=== PATIENT | male | born 2000 | race African-American/Black ===

== ENCOUNTER 2019-05-10 17:40 | Observation (INO) ==
[2019-05-10] MEDS ORDERED: LACTATED RINGERS 1,000 ML IV STA (17:54)
[2019-05-10] MEDS ORDERED: ONDANSETRON 4 MG/2 ML VIAL IV STA (17:54)
[2019-05-10] MEDS ORDERED: fentaNYL 100 MCG/2 ML VIAL IV STA (17:54)
[2019-05-10 18:26] LABS: Basophils % 0.2 % (0.0-0.8); Eosinophils % 0.2 % (0.00-10.9); Hemoglobin 13.5 GM/DL (14.0-18.0); Immature Granulocytes % 0.2 %; Immature Granulocytes Absolute 0.01 #; Lymphocytes # 2.5 10*3/uL (1.4-4.0); Lymphocytes % 54.3 % (21.2-54.2); Mean Corpuscular HGB Conc 32.9 GM/DL (32-36); Mean Corpuscular Volume 88.9 FL (87-102); Mean Platelet Volume 11.7 FL (9.6-12.0); Neutrophils % 36.1 % (38.7-73.9); Platelet Count 159 T/CUMM (130-400); Red Blood Count 4.61 MC/CUMM (3.8-5.5); Red Cell Distribution Width 12.7 % (9.3-17.3); White Blood Count 4.6 T/CUMM (4-12)
[2019-05-10 18:32] LABS: INR 1.1; PT Patient Result 11.4 SECS (9.6-12.2); Partial Thromboplastin Time 22.6 SECS (20.8-36.0)
[2019-05-10 18:38] LABS: Alanine Aminotransferase 18 U/L (16-61); Albumin 3.7 G/DL (3.4-5.0); Alkaline Phosphatase 77 U/L (45-117); Amylase 46 U/L (25-115); Aspartate Amino Transferase 22 U/L (0-37); Blood Urea Nitrogen 14 MG/DL (7-18); Estimated Glom Filtration Rate 98 ML/MIN; Glucose 114 MG/DL (74-106); Osmolality,Calculated 280.4 MOS/KG (273-304); Total Protein 7.4 G/DL (6.4-8.3)
[2019-05-10] MEDS ORDERED: ceFAZolin 1,000 MG in SYRINGE 1 EACH IV ONE (19:01)
[2019-05-10] MEDS ORDERED: DIPH/TET/ACEL PERT BOOSTER VACCINE 0.5 ML VIAL IM ONE ×4 (19:03→19:30)
[2019-05-10 19:05] LABS: Band Neutrophils 1 % (0-10); Lymphocytes 53 % (20-55); Platelet Estimate Normal; Segmented Neutrophils 41 % (50-85); Total Cells Counted 100
[2019-05-10 19:28] LABS: Apearance,Urine CLEAR (Clear); Bilirubin,Urine Negative (Negative); Blood, Urine Negative (Negative); Glucose,Urine (UA) Negative (Negative); Ketones,Urine Negative (Negative); Mucus,Urine Few /LPF (Occasional); Nitrite,Urine Negative (Negative); Protein,Urine Negative; RBC,Urine 1 /HPF (0-4); Squamous Epithelial Cell,Urine Occasional /HPF (0-10); Urine Color Yellow (Yellow); Urine Specific Gravity 1.046 (1.001-1.035); WBC,Urine 3 /HPF (0-6)
[2019-05-10 19:35] LABS: Barbiturates Screen,Urine Negative (Negative); Benzodiazepines Screen,Urine Negative (Negative); Cannabinoid Screen,Urine Negative (Negative); Opiate Screen,Urine Negative (Negative); Phencyclidine Screen,Urine Negative (Negative)
[2019-05-10] MEDS ORDERED: diphenhydrAMINE 50 MG/1 ML VIAL IV PRN (19:49)
[2019-05-10] MEDS ORDERED: PROMETHAZINE INJ 25 MG in SODIUM CHLORIDE 0.9% 50 ML IV PRN (19:49)
[2019-05-10] MEDS ORDERED: MEPERIDINE 25 MG/1 ML VIAL IV PRN (19:49)
[2019-05-10] MEDS ORDERED: ONDANSETRON 4 MG/2 ML VIAL IV PRN ×2 (19:49→21:53)
[2019-05-10] MEDS ORDERED: HEPARIN 5,000 UNIT/1 ML VIAL ONE ×2 (20:06→20:07)
[2019-05-10] MEDS ORDERED: SUGAMMADEX 200 MG/2 ML VIAL IV ONE (21:01)
[2019-05-10] MEDS ORDERED: MEPERIDINE 25 MG/1 ML VIAL ONE (21:19)
[2019-05-10] MEDS ORDERED: ONDANSETRON 4 MG/2 ML VIAL ONE ×2 (21:19→21:23)
[2019-05-10] MEDS ORDERED: LIDOCAINE 2% 5 ML VIAL ONE (21:23)
[2019-05-10] MEDS ORDERED: SUCCINYLCHOLINE 200 MG/10 ML VIAL ONE (21:23)
[2019-05-10] MEDS ORDERED: propofoL 200 MG/20 ML VIAL IV ONE (21:23)
[2019-05-10] MEDS ORDERED: DESFLURANE 1 UNIT/15 MINUTE INH ONE (21:23)
[2019-05-10] MEDS ORDERED: fentaNYL 100 MCG/2 ML VIAL ONE (21:23)
[2019-05-10] MEDS ORDERED: ROCURONIUM 100 MG/10 ML VIAL IV ONE (21:24)
[2019-05-10] MEDS ORDERED: LACTATED RINGERS 1,000 ML IV ONE (21:24)
[2019-05-10] MEDS ORDERED: HYDROmorphone 2 MG/1 ML VIAL IV PRN (21:53)
[2019-05-10] MEDS ORDERED: PROMETHAZINE 25 MG/1 ML VIAL IM PRN (21:53)
[2019-05-10 22:22] LABS: Basophils % 0.1 % (0.0-0.8); Hematocrit 36.4 VOL% (42.0-52.0); Hemoglobin 11.9 GM/DL (14.0-18.0); Immature Granulocytes % 0.5 %; Immature Granulocytes Absolute 0.08 #; Lymphocytes # 1.1 10*3/uL (1.4-4.0); Lymphocytes % 6.4 % (21.2-54.2); Mean Corpuscular HGB Conc 32.7 GM/DL (32-36); Mean Corpuscular Volume 89.9 FL (87-102); Monocytes % 4.1 % (1.7-12.7); Neutrophils % 88.9 % (38.7-73.9); Platelet Count 136 T/CUMM (130-400); Red Blood Count 4.05 MC/CUMM (3.8-5.5); Red Cell Distribution Width 12.7 % (9.3-17.3); White Blood Count 17.1 T/CUMM (4-12)
[2019-05-10] MEDS ORDERED: ASPIRIN 325 MG TABLET PO ONE (22:30)
[2019-05-10] MEDS: LACTATED RINGERS 1,000 ML IV SCH (22:35)
[2019-05-10] MEDS: KETOROLAC 15 MG/1 ML VIAL IV SCH (22:35)
[2019-05-11] MEDS: KETOROLAC 15 MG/1 ML VIAL IV SCH ×2 (05:10→09:42)
[2019-05-11] MEDS: LACTATED RINGERS 1,000 ML IV SCH (05:11)
[2019-05-11 05:27] LABS: Basophils % 0.1 % (0.0-0.8); Eosinophils % 0.1 % (0.00-10.9); Hemoglobin 10.5 GM/DL (14.0-18.0); Immature Granulocytes % 0.2 %; Immature Granulocytes Absolute 0.02 #; Lymphocytes % 21.5 % (21.2-54.2); Mean Corpuscular HGB Conc 33.9 GM/DL (32-36); Mean Corpuscular Volume 87.1 FL (87-102); Mean Platelet Volume 10.8 FL (9.6-12.0); Monocytes % 7.8 % (1.7-12.7); Neutrophils % 70.3 % (38.7-73.9); Platelet Count 111 T/CUMM (130-400); Red Blood Count 3.56 MC/CUMM (3.8-5.5); Red Cell Distribution Width 12.8 % (9.3-17.3); White Blood Count 9.4 T/CUMM (4-12)
[2019-05-11] MEDS ORDERED: ASPIRIN 325 MG TABLET PO SCH (09:00)
[2019-05-11 11:40] VITALS: BP 148/79
== END 2019-05-11 13:05 | disposition home or self-care (01) ==
LOC: N.ED 17:40 → N.EDINP 17:40 → N.3E 19:43
PROVIDERS: ADMIT Surgery; ATTEND Surgery